=== PATIENT | male | born 1950 | race Caucasian/White ===

== ENCOUNTER 2017-04-11 20:10 | Emergency (ER) | payer OTHER ==
[2017-04-11] MEDS ORDERED: Ketorolac INJ* 30 MG/ML 1 ML VIAL IV ONE (20:22)
[2017-04-11] MEDS ORDERED: HYDROmorphone* 1 MG/ML 1 ML SYR IV ONE (20:22)
[2017-04-11] MEDS ORDERED: Ondansetron INJ* 2 MG/ML VIAL IV ONE (20:22)
[2017-04-11] MEDS ORDERED: NS 0.9% 1000 ML* 1,000 ML IV ONE (20:22)
[2017-04-11 20:37] LABS: Hematocrit 44 % (42-52); Hemoglobin 15.5 g/dl (14.0-18.0); Mean Corpuscular HGB Conc 35 g/dl (31-36); Mean Corpuscular Hemoglobin 33 pg (27-31); Mean Corpuscular Volume 93 fL (80-94); Mean Platelet Volume 8 um3 (7.4-10.4); Red Blood Count 4.74 10^6/ul (4.0-5.4); Red Cell Distribution Width 12 % (10.5-15); White Blood Count 11.8 10^3/ul (3.5-10.8)
[2017-04-11 20:41] LABS: Add Diff/Slide Review? Slide Review Added; Comments Flag Yes
[2017-04-11 20:57] LABS: ALT 37 U/L (7-52); Albumin 4.1 g/dL (3.2-5.2); Alkaline Phosphatase 99 U/L (34-104); BUN/Creatinine Ratio 22.4 (8-20); Blood Urea Nitrogen 28 mg/dL (6-24); C Reactive Protein < 1.00 mg/L (< 5.00); CO2 Carbon Dioxide 25 mmol/L (22-32); Calcium 9.1 mg/dL (8.6-10.3); Chloride 105 mmol/L (101-111); EGFR African American 74.8 (>60); EGFR Non-African American 58.2 (>60); Globulin 2.7 g/dL (2-4); Glucose 147 mg/dL (70-100); Lipase 50 U/L (11.0-82.0); Sodium 138 mmol/L (133-145); Total Protein 6.8 g/dL (6.4-8.9)
--- NOTE | 2017-04-11 20:58 | RAD ---
INDICATION: Sudden low back pain and cessation of urination. History of kidney stones. COMPARISON: No relevant prior exams available on the [facility] PACS for comparison. TECHNIQUE: Multidetector CT images were obtained from the lung bases to the ischial tuberosities. Evaluation of the viscera is limited without IV contrast. Multiplanar reformation. REPORT: Unremarkable visualized inferior thorax. The unenhanced liver, gallbladder, pancreas, and spleen are unremarkable. Negative for CT abnormality of the upper GI, small bowel, medially extending appendix, or colon. Negative for ascites, free air, or hernias. Normal adrenal glands. Focal cortical scarring at the posterior lower pole of the LEFT kidney with minimal associated calcification. No suspicious focal renal lesions evident within limits of noncontrast CT. 4.5 mm maximum dimension LEFT ureterovesicular junction stone without associated hydroureter or hydronephrosis. No additional urolithiasis evident. Aside from the LEFT ureterovesicular stone in the partially distended urinary bladder is unremarkable. Coarse calcification at the prostate. Symmetric seminal vesicles. Mild atherosclerotic calcification of normal diameter abdominal aorta and iliac arteries. Physiologic distention of the IVC. Negative for lymphadenopathy. RIGHT hemisacralization of L5. Polyarticular degenerative arthropathy. No fracture or suspicious focal osseous lesions evident. IMPRESSION: 4.5 mm maximum dimension LEFT ureterovesicular junction stone without associated hydroureter or hydronephrosis. No additional urolithiasis evident.
[2017-04-11 21:03] LABS: AST 33 U/L (13-39); Anion Gap 8 mmol/L (2-11); Potassium 4.2 mmol/L (3.5-5.0)
[2017-04-11] MEDS ORDERED: NS 0.9% 1000 ML* 1,600 ML IV ONE (21:19)
[2017-04-11 22:54] LABS: Urine Bacteria Absent (Absent); Urine Bilirubin Negative (Negative); Urine Glucose Negative (Negative); Urine Nitrite Negative (Negative)
[2017-04-11] MEDS ORDERED: LORazepam INJ* 2 MG/ML 1 ML VIAL IV PUSH ONE (22:56)
[2017-04-11] MEDS ORDERED: fentaNYL* 50 MCG/ML 2 ML VIAL (100 MCG VIAL) IV SLOW PU ONE (22:57)
[2017-04-11] MEDS ORDERED: HYDROmorphone* 1 MG/ML 1 ML SYR IV SLOW PU ONE (22:57)
--- NOTE | 2017-04-11 23:49 | ED ---
I, Servando,Michael, scribed for Milka Lopez MD on 04/11/17 at 2021 . Back Pain - HPI Summary HPI Summary: This 66 y/o male presents to ED for acute onset of sharp left lower back pain. Pt was urinating at time of onset when pain occurred and urination stopped. No prior episode of painful urination. Ambulation makes the pain worse. PMHx includes HTN. Primary care involves Dr. Bay. Nonsmoker and nondrinker. FHx is positive for HTN. - History of Current Complaint Stated Complaint: BACK PAIN Time Seen by Provider: 04/11/17 20:17 Hx Obtained From: Patient, Medical Records Onset/Duration: Started Hours Ago, Atraumatic, Still Present Back Pain Location: Is Discrete @ - left lower back pain Character: Sharp Aggravating Symptom(s): Walking Alleviating Symptom(s): Rest - Allergies/Home Medications Allergies/Adverse Reactions: Allergies Allergy/AdvReac Type Severity Reaction Status Date / Time Unable to Obtain Allergy Verified 04/11/17 20:22 PMH/Surg Hx/FS Hx/Imm Hx Cardiovascular History: Reports: Hx Hypertension - Family History Known Family History: Positive: Hypertension - Social History Lives: With Family Alcohol Use: None Hx Substance Use: No Substance Use Type: Reports: None Hx Tobacco Use: No Smoking Status (MU): Never Smoked Tobacco Review of Systems Negative: Fever Positive: flank pain - left flank pain All Other Systems Reviewed And Are Negative: Yes Physical Exam Triage Information Reviewed: Yes Vital Signs On Initial Exam: Initial Vitals Temp Pulse Resp BP Pulse Ox 96.6 F 84 20 138/82 100 04/11/17 20:19 04/11/17 20:19 04/11/17 20:19 04/11/17 20:19 04/11/17 20:19 Vital Signs Reviewed: Yes Appearance: Positive: Pain Distress - moderate to severe Skin: Positive: Warm, Skin Color Reflects Adequate Perfusion Head/Face: Positive: Normal Head/Face Inspection Eyes: Positive: EOMI, [place] Neck: Positive: Supple, Nontender Respiratory/Lung Sounds: Positive: Breath Sounds Present Cardiovascular: Positive: RRR, Pulses are Symmetrical in both Upper and Lower Extremities Abdomen Description: Positive: CVA Tenderness (L) Musculoskeletal: Positive: Strength/ROM Intact Neurological: Positive: Sensory/Motor Intact, Alert, Oriented to Person Place, Time Psychiatric: Positive: Affect/Mood Appropriate AVPU Assessment: Alert Diagnostics - Vital Signs Vital Signs Temp Pulse Resp BP Pulse Ox 04/11/17 21:40 17 04/11/17 20:19 96.6 F 84 20 138/82 100 - Laboratory Lab Results: Lab Results 04/11/17 04/11/17 04/11/17 Range/Units 20:30 20:30 20:30 WBC 11.8 H (3.5-10.8) 10^3/ul RBC 4.74 (4.0-5.4) 10^6/ul Hgb 15.5 (14.0-18.0) g/dl Hct 44 (42-52) % MCV 93 (80-94) fL MCH 33 H (27-31) pg MCHC 35 (31-36) g/dl RDW 12 (10.5-15) % Plt Count 214 (150-450) 10^3/ul MPV 8 (7.4-10.4) um3 Neut % (Auto) 73.4 (38-83) % Lymph % (Auto) 17.5 L (25-47) % [place] % (Auto) 6.5 (1-9) % Eos % (Auto) 1.6 (0-6) % Baso % (Auto) 1.0 (0-2) % Absolute Neuts (auto) 8.7 H (1.5-7.7) 10^3/ul Absolute Lymphs (auto) 2.1 (1.0-4.8) 10^3/ul Absolute Monos (auto) 0.8 (0-0.8) 10^3/ul Absolute Eos (auto) 0.2 (0-0.6) 10^3/ul Absolute Basos (auto) 0.1 (0-0.2) 10^3/ul Absolute Nucleated RBC 0 10^3/ul Nucleated RBC % 0 Sodium 138 (133-145) mmol/L Potassium 4.2 (3.5-5.0) mmol/L Chloride 105 (101-111) mmol/L Carbon Dioxide 25 (22-32) mmol/L Anion Gap 8 (2-11) mmol/L BUN 28 H (6-24) mg/dL Creatinine 1.25 H (0.67-1.17) mg/dL Est GFR ( Amer) 74.8 (>60) Est GFR (Non-Af Amer) 58.2 (>60) BUN/Creatinine Ratio 22.4 H (8-20) Glucose 147 H (70-100) mg/dL Lactic Acid 2.1 H* (0.5-2.0) mmol/L Calcium 9.1 (8.6-10.3) mg/dL Total Bilirubin 0.70 (0.2-1.0) mg/dL AST 33 (13-39) U/L ALT 37 (7-52) U/L Alkaline Phosphatase 99 (34-104) U/L C-Reactive Protein < 1.00 (< 5.00) mg/L Total Protein 6.8 (6.4-8.9) g/dL Albumin 4.1 (3.2-5.2) g/dL Globulin 2.7 (2-4) g/dL Albumin/Globulin Ratio 1.5 (1-3) Lipase 50 (11.0-82.0) U/L Urine Color Urine Appearance Urine pH (5-9) Ur Specific [place] (1.010-1.030) Urine Protein (Negative) Urine Ketones (Negative) Urine Blood (Negative) Urine Nitrate (Negative) Urine Bilirubin (Negative) Urine Urobilinogen (Negative) Ur Leukocyte Esterase (Negative) Urine WBC (Auto) (Absent) Urine RBC (Auto) (Absent) Urine Bacteria (Absent) Urine Glucose (Negative) 04/11/17 Range/Units 22:38 WBC (3.5-10.8) 10^3/ul RBC (4.0-5.4) 10^6/ul Hgb (14.0-18.0) g/dl Hct (42-52) % MCV (80-94) fL MCH (27-31) pg MCHC (31-36) g/dl RDW (10.5-15) % Plt Count (150-450) 10^3/ul MPV (7.4-10.4) um3 Neut % (Auto) (38-83) % Lymph % (Auto) (25-47) % [place] % (Auto) (1-9) % Eos % (Auto) (0-6) % Baso % (Auto) (0-2) % Absolute Neuts (auto) (1.5-7.7) 10^3/ul Absolute Lymphs (auto) (1.0-4.8) 10^3/ul Absolute Monos (auto) (0-0.8) 10^3/ul Absolute Eos (auto) (0-0.6) 10^3/ul Absolute Basos (auto) (0-0.2) 10^3/ul Absolute Nucleated RBC 10^3/ul Nucleated RBC % Sodium (133-145) mmol/L Potassium (3.5-5.0) mmol/L Chloride (101-111) mmol/L Carbon Dioxide (22-32) mmol/L Anion Gap (2-11) mmol/L BUN (6-24) mg/dL Creatinine (0.67-1.17) mg/dL Est GFR ( Amer) (>60) Est GFR (Non-Af Amer) (>60) BUN/Creatinine Ratio (8-20) Glucose (70-100) mg/dL Lactic Acid (0.5-2.0) mmol/L Calcium (8.6-10.3) mg/dL Total Bilirubin (0.2-1.0) mg/dL AST (13-39) U/L ALT (7-52) U/L Alkaline Phosphatase (34-104) U/L C-Reactive Protein (< 5.00) mg/L Total Protein (6.4-8.9) g/dL Albumin (3.2-5.2) g/dL Globulin (2-4) g/dL Albumin/Globulin Ratio (1-3) Lipase (11.0-82.0) U/L Urine Color Yellow Urine Appearance Clear Urine pH 7.0 (5-9) Ur Specific [place] 1.017 (1.010-1.030) Urine Protein Negative (Negative) Urine Ketones Trace H (Negative) Urine Blood 2+ H (Negative) Urine Nitrate Negative (Negative) Urine Bilirubin Negative (Negative) Urine Urobilinogen Negative (Negative) Ur Leukocyte Esterase Negative (Negative) Urine WBC (Auto) Trace(0-5/hpf) (Absent) Urine RBC (Auto) 3+(>10/hpf) H (Absent) Urine Bacteria Absent (Absent) Urine Glucose Negative (Negative) Result Diagrams: 04/11/17 20:30 04/11/17 20:30 Lab Statement: Any lab studies that have been ordered have been reviewed, and results considered in the medical decision making process. - CT Ab/P CT Interpretation: Positive (See Comments) - 4.5 mm maximum dimension LEFT ureterovesicular junction stone without associated hydroureter or hydronephrosis. No additional urolithiasis evident. CT Interpretation Completed By: Radiologist Re-Evaluation - Re-Evaluation First Eval Re-Evaluation Time: 22:51 Comment: MD in room to share CT Ab/P imaging results and bloodwork. Back Pain Course/Dx - Course Course Of Treatment: 66 yo male with renal stone, waiting on and then will go home - Diagnoses Provider Diagnoses: Renal calculus, left Discharge - Discharge Plan Condition: Stable Disposition: HOME Prescriptions: Ondansetron ODT TAB* [Zofran 4 MG Odt TAB*] 4 mg PO Q8H PRN #20 tab.odt PRN Reason: Nausea Tamsulosin CAP* [Flomax CAP*] 0.4 mg PO DAILY #7 cap oxyCODONE/Acetamin 5/325 MG* [Percocet 5/325 TAB*] 1 tab PO Q8H PRN #20 tab MDD 3 PRN Reason: Pain Patient Education Materials: Oxycodone/Acetaminophen (By mouth), Ondansetron ( By mouth), Tamsulosin (By mouth), Kidney Stones (ED) Referrals: [facility] [place] [facility]IAN REFERRAL [Outside] - 2 Days Usman Casas MD [Medical Doctor] - 2 Days The documentation as recorded by the Servando sexton Soohyun accurately reflects the service I personally performed and the decisions made by me, Milka Lopez MD.
[2017-04-12 01:44] VITALS: BP 131/72
== END 2017-04-12 00:53 | disposition home or self-care (01) ==
LOC: ED 20:10
DX: N20.0 Calculus of kidney (principal); M54.5 Low back pain; R10.84 Generalized abdominal pain
CPT/HCPCS: 36415; 74176; 80053; 81003; 81015; 83605; 83690; 85025; 86140; 96374; 96375; 99283; J1170; J1885; J2405